=== PATIENT | male | born 1990 | race Caucasian/White ===

== ENCOUNTER 2018-02-02 22:23 | Emergency (ER) | payer OTHER ==
[~2018-02-02] VITALS: Ht 177.8 cm; Wt 62.1 kg
[~2018-02-02 22:23] MED LIST: AUGMENTIN250 MG/51 PO
--- NOTE | 2018-02-02 22:50 | ED ANIMAL BITE/WOUND CHECK ---
History of Present Illness General Chief Complaint: Animal/Insect Bite Stated Complaint: DOG BITE TO LOWER RT ARM/RT SIDE OF HEAD Source: patient Exam Limitations: no limitations Vital Signs & Intake/Output Vital Signs & Intake/Output Vital Signs Date Time Temp Pulse Resp B/P B/P Pulse O2 O2 Flow FiO2 Mean Ox Delivery Rate 02/02 2351 73 18 130/83 99 Room Air 02/02 2236 98.2 80 16 131/89 98 Room Air Room Air ED Intake and Output 02/03 0000 02/02 1200 Intake Total Output Total Balance Patient 137 lb Weight Allergies Coded Allergies: lactose (Intermediate, GI UPSET 02/02/18) Reconcile Medications Amoxicillin/Potassium Clav (Augmentin 250-62.5 MG/5 Ml) 250 MG-62.5 MG/5 ML SUSP.RECON 10 ML PO TID DOG BITE Triage Note: PT TO TRIAGE WITH DOG BITES TO HEAD, AND BOTH ARMS. DOG IS UP TO DATE. MAYBE UPDATE ON TETANUS Triage Nurses Notes Reviewed? yes Onset: Abrupt Duration: day(s): Timing: recent history Injury Environment: home Is Injury an Animal Bite? Yes Animal Type: dog, family pet Context of Animal Attack: animals fighting Appearance of Animal: appeared well Animal Immunization Status: up to date Severity of Attack: bitten, scratched HPI: 27-year-old male comes into the emergency room for further evaluation of scratches and bites from 2 dogs fighting. Patient reports his and his girlfriend's dog and her parents dog got into a fight. The dogs are up-to-date in her previous vaccine. Patient went to college and feels that his tetanus shot is up-to-date. He has a cut on his scalp and some superficial cuts on his forearms bilaterally. Denies any loss of consciousness. Denies any injury anywhere else. Denies any associated symptoms. Mild throbbing pain. Past History Travel History Traveled to [place] past 21 day No Medical History Any Pertinent Medical History? 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 No Review of Systems Review of Systems Constitutional: Reports: no symptoms. EENTM: Reports: no symptoms. Respiratory: Reports: no symptoms. Cardiovascular: Reports: no symptoms. GI: Reports: no symptoms. Genitourinary: Reports: no symptoms. Musculoskeletal: Reports: see HPI. Skin: Reports: see HPI. Neurological/Psychological: Reports: no symptoms. Hematologic/Endocrine: Reports: no symptoms. Immunologic/Allergic: Reports: no symptoms. All Other Systems: Reviewed and Negative Physical Exam Physical Exam General Appearance: well developed/nourished, mild distress Head: LACERATION RIGHT SCALP APPROX 3 CM DEEP AND 2 CM SUPERFICIAL, Eyes: Bilateral: normal appearance. Ears, Nose, Throat: normal ENT inspection, hearing grossly normal Neck: normal inspection, supple Respiratory: no respiratory distress Cardiovascular: regular rate/rhythm Back: normal inspection Extremities: ABRASION TO LEFT AND RIGHT FOREARM, NO OPEN WOUND, NO GAPING LACERATIONS Neurologic/Psych: awake, alert, oriented x 3, normal mood/affect Skin: intact, normal color, warm/dry Progress Differential Diagnosis: abscess, cellulitis, joint infection, tenosysnovitis Plan of Care: Current Medications Sig/Eric Start time Last Medication Dose Stop Time Status Admin Tetanus/Diphtheria 0.5 ML ONCE ONE 02/02 2300 UNVr Toxoids Adsorbed 02/02 2301 (Decavac) Departure Departure Disposition: HOME OR SELF CARE Condition: Stable Clinical Impression Primary Impression: Dog bite of right arm Secondary Impressions: Dog bite of scalp Additional Instructions: Take Augmentin as prescribed. Follow-up with primary care doctor. Watch for signs of infection such as redness on discharge fever chills. Please go over all results of today's visit with your primary care doctor. Contact your primary care doctor to let them know you were here in the emergency room. There may be nonspecific findings which may not be related to your visit today here in the emergency room but may require further evaluation and chronic monitoring by your primary care doctor. If you had a laceration today the chance of foreign body always remains. You should follow-up with your primary care doctor for recheck in 3-5 days for a wound check. If you had an x-ray done there is a chance that a fracture could have been missed on initial read and you should follow-up with your primary care doctor for repeat x-rays if symptoms persist. If your blood pressure was elevated here in the emergency room please have rechecked by jordan primary care doctor within the next 48. If you were prescribed a narcotic here in the emergency room or any type of controlled substances you're not allowed to drive while taking this medication or operate any type of heavy machinery. Narcotics can make you feel lightheaded dizziness nausea and can cause constipation. You may need to picker/puller a stool softener. Thank you for choosing [facility] emergency room. Please return to the emergency room immediately if you have any other concerns worsening of symptoms. Departure Forms: Customer Survey General Discharge Information Prescriptions: Current Visit Scripts Amoxicillin/Potassium Clav (Augmentin 250-62.5 MG/5 Ml) 10 ML PO TID #300 ML Procedures Laceration/Wound Repair Progress: 3 cm laceration right scalp, irrigated with peroxide and saline, patient declined lidocaine, 2 abhijeet placed, sterile technique, patient tolerated procedure well
[2018-02-02] MEDS ORDERED: AUGMENTIN 875-1 EACH PO (23:27)
[2018-02-02 23:51] VITALS: BP 130/83
== END 2018-02-03 00:09 ==
LOC: ERH 22:23
DX: S01.05XA Open bite of scalp, initial encounter (principal); S51.851A Open bite of right forearm, initial encounter; S51.852A Open bite of left forearm, initial encounter; W54.0XXA Bitten by dog, initial encounter; Y93.9 Activity, unspecified; Y92.009 Unspecified place in unspecified non-institutional (private) residence as the place of occurrence of the external cause
CPT/HCPCS: 90471; 90714